=== PATIENT | female | born 1970 | race Caucasian/White ===

== ENCOUNTER 2017-09-02 07:17 | Emergency (ER) | payer OTHER ==
[~2017-09-02] VITALS: Ht 157.5 cm; Wt 62.1 kg
[2017-09-02] MEDS ORDERED: IV NORMAL SALINE 1,000ML 1,000 ML IV ONE (07:30)
--- NOTE | 2017-09-02 07:49 | PHYS DOC ---
Past History Past Medical History: Kidney Stones, UTI Past Surgical History: Cholecystectomy, Oophorectomy Alcohol Use: None Drug Use: None Adult General Chief Complaint Chief Complaint: Abdominal pain HPI HPI Patient is a 47 year old F who presents with constant dull lower abdominal pain with fluctuating intensity that started last night. Her pain does not radiate. She describes associated nausea without vomiting and loose stools over the past 2 days. She does have a history of diverticulitis and she feels that this is similar to her previous episodes. She does not feel that this is worse than previous episodes. She has been previously diagnosed with diverticulitis via CT scans. Review of Systems Review of Systems Constitutional: Denies fever or chills [] Eyes: Denies change in visual acuity, redness, or eye pain [] HENT: Denies nasal congestion or sore throat [] Respiratory: Denies cough or shortness of breath [] Cardiovascular: No additional information not addressed in HPI [] GI: Negative except history of present illness : Denies dysuria or hematuria [] Musculoskeletal: Denies back pain or joint pain [] Integument: Denies rash or skin lesions [] Neurologic: Denies headache, focal weakness or sensory changes [] Endocrine: Denies polyuria or polydipsia [] All other systems were reviewed and found to be within normal limits, except as documented in this note. Family History Family History No pertinent family medical history was reported Current Medications Current Medications Current medications reviewed Allergies Allergies Allergies Coded Allergies Type Severity Reaction Last Updated Verified Penicillins Allergy Intermediate 11/13/15 Yes Physical Exam Physical Exam Constitutional: Well developed, well nourished, minimal acute distress, non- toxic appearance. [] HENT: Normocephalic, atraumatic, Eyes: EOMI, conjunctiva normal, no discharge. [] Neck: Normal range of motion, no tenderness, supple, no stridor. [] Cardiovascular:Heart rate regular rhythm, Lungs & Thorax: Bilateral breath sounds clear to auscultation [] Abdomen: Bowel sounds normal, soft, no masses, no pulsatile masses. [] Mild to moderate bilateral lower abdominal tenderness to palpation. No guarding or rebound was noted. No tenderness noted and upper quadrants Skin: Warm, dry, no erythema, no rash. [] Extremities: No tenderness, no cyanosis, no clubbing, ROM intact, no edema. [] Neurologic: Alert and oriented X 3, normal motor function, normal sensory function, no focal deficits noted. [] Psychologic: Affect normal, judgement normal, mood normal. [] Current Patient Data Vital Signs Vital Signs Date Time Temp Pulse Resp B/P (MAP) Pulse Ox O2 Delivery O2 Flow Rate FiO2 09/02/17 08:33 74 20 107/42 (63) 97 Room Air 09/02/17 07:17 98.2 77 22 100 Room Air Lab Results Laboratory Tests Test 09/02/17 07:35 09/02/17 07:45 Urine Collection Type Unknown Urine Color Yellow Urine Clarity Hazy Urine pH 5.0 Urine Specific [place] 1.025 Urine Protein Neg (NEG-TRACE) Urine Glucose (UA) Neg mg/dL (NEG) Urine Ketones (Stick) Neg mg/dL (NEG) Urine Blood Mod (NEG) Urine Nitrite Neg (NEG) Urine Bilirubin Neg (NEG) Urine Urobilinogen Dipstick 0.2 mg/dL (0.2 mg/dL) Urine Leukocyte Esterase Neg (NEG) Urine RBC 3-5 /HPF (0-2) Urine WBC 0 /HPF (0-4) Urine Squamous Epithelial Cells Many /LPF Urine Bacteria 0 /HPF (0-FEW) Urine Hyaline Casts Occ /HPF Urine Mucus Slight /LPF White Blood Count 12.2 x10^3/uL (4.0-11.0) Red Blood Count 4.41 x10^6/uL (3.50-5.40) Hemoglobin 13.8 g/dL (12.0-15.5) Hematocrit 41.2 % (36.0-47.0) Mean Corpuscular Volume 94 fL (79-100) Mean Corpuscular Hemoglobin 31 pg (25-35) Mean Corpuscular Hemoglobin Concent 33 g/dL (31-37) Red Cell Distribution Width 13.4 % (11.5-14.5) Platelet Count 236 x10^3/uL (140-400) Neutrophils (%) (Auto) 77 % (31-73) Lymphocytes (%) (Auto) 14 % (24-48) Monocytes (%) (Auto) 7 % (0-9) Eosinophils (%) (Auto) 1 % (0-3) Basophils (%) (Auto) 1 % (0-3) Neutrophils # (Auto) 9.4 x10^3uL (1.8-7.7) Lymphocytes # (Auto) 1.7 x10^3/uL (1.0-4.8) Monocytes # (Auto) 0.9 x10^3/uL (0.0-1.1) Eosinophils # (Auto) 0.1 x10^3/uL (0.0-0.7) Basophils # (Auto) 0.1 x10^3/uL (0.0-0.2) Sodium Level 140 mmol/L (136-145) Potassium Level 3.6 mmol/L (3.5-5.1) Chloride Level 103 mmol/L (98-107) Carbon Dioxide Level 28 mmol/L (21-32) Anion Gap 9 (6-14) Blood Urea Nitrogen 12 mg/dL (7-20) Creatinine 0.7 mg/dL (0.6-1.0) Estimated GFR (Cockcroft-Gault) 90.5 BUN/Creatinine Ratio 17 (6-20) Glucose Level 90 mg/dL (70-99) Calcium Level 8.9 mg/dL (8.5-10.1) Total Bilirubin 0.2 mg/dL (0.2-1.0) Aspartate Amino Transf (AST/SGOT) 11 U/L (15-37) Alanine Aminotransferase (ALT/SGPT) 10 U/L (14-59) Alkaline Phosphatase 101 U/L (46-116) Total Protein 7.2 g/dL (6.4-8.2) Albumin 3.4 g/dL (3.4-5.0) Albumin/Globulin Ratio 0.9 (1.0-1.7) EKG EKG [] Radiology/Procedures Radiology/Procedures CT scan was declined. There is clearly explained that a CT scan would be the most specific and sensitive test to evaluate for diagnoses and the abdomen that would require surgery. He was also explained that these conditions may be life- threatening or permanently disabling if untreated. The patient declined the CT scan due to risk of radiation exposure and risk with IV contrast after verbalizing clear understanding without a CT scan a life-threatening or permanently disabling diagnosis may be ineffectively managed. Course & Med Decision Making Course & Med Decision Making Pertinent Labs and Imaging studies reviewed. (See chart for details) [] Dragon Disclaimer Dragon Disclaimer This electronic medical record was generated, in whole or in part, using a voice recognition dictation system. Departure Departure: Impression: Primary Impression: Diverticulitis Disposition: 01 HOME, SELF-CARE Condition: STABLE Referrals: BURTON GRESHAM MD (PCP) Patient Instructions: Diverticulitis Additional Instructions: Laura was seen in the emergency department for abdominal pain and diarrhea. No emergency medical condition was found on history or physical exam. Her symptoms and labs were most consistent with diverticulitis. She was started on oral antibiotics in the emergency room. She was given a prescription for antibiotics , nausea medication, and pain medication. She is encouraged to return to the emergency room if she develops new or worsening symptoms. She was also advised follow-up with her primary care doctor in the next 3-5 days for further management. Scripts Mesalamine (PENTASA) 500 Mg Capsule.er 1000 MG PO TID for 7 Days, #42 CAP.SR Prov: RINKU LAW MD 09/02/17 Ondansetron (ZOFRAN ODT) 4 Mg Tab.rapdis 1 TAB SL Q8HRS, #15 TAB Prov: RINKU LAW MD 09/02/17 Metronidazole (FLAGYL) 500 Mg Tablet 1 TAB PO BID for 10 Days, #20 TAB Prov: RINKU LAW MD 09/02/17 Ciprofloxacin Hcl (CIPRO) 500 Mg Tablet 1 TAB PO BID for 10 Days, #20 TAB Prov: RINKU LAW MD 09/02/17 RINKU LAW MD Sep 02, 2017 07:49
[2017-09-02 08:02] LABS: BASO # 0.1 x10^3/uL (0.0-0.2); BASO % 1 % (0-3); EOS # 0.1 x10^3/uL (0.0-0.7); EOS % 1 % (0-3); HEMATOCRIT 41.2 % (36.0-47.0); HEMOGLOBIN 13.8 g/dL (12.0-15.5); LYMPH # 1.7 x10^3/uL (1.0-4.8); LYMPH % 14 % (24-48); MEAN CORPUSCULAR HEMOGLOBIN 31 pg (25-35); MEAN CORPUSCULAR HGB CONC 33 g/dL (31-37); MEAN CORPUSCULAR VOLUME 94 fL (79-100); MONO # 0.9 x10^3/uL (0.0-1.1); MONO % 7 % (0-9); NEUT # 9.4 x10^3uL (1.8-7.7); NEUT % 77 % (31-73); PLATELET COUNT 236 x10^3/uL (140-400); RED BLOOD COUNT 4.41 x10^6/uL (3.50-5.40); RED CELL DISTRIBUTION WIDTH 13.4 % (11.5-14.5); WHITE BLOOD COUNT 12.2 x10^3/uL (4.0-11.0)
[2017-09-02] MEDS ORDERED: ONDANSETRON PF 4 MG/2 ML VIAL. IV ONE (08:15)
[2017-09-02] MEDS ORDERED: MESALAMINE 1.2 GM TABLET.DR PO ONE (08:15)
[2017-09-02 08:29] LABS: ALBUMIN 3.4 g/dL (3.4-5.0); ALBUMIN/GLOBULIN RATIO 0.9 (1.0-1.7); CALCIUM 8.9 mg/dL (8.5-10.1); CREATININE 0.7 mg/dL (0.6-1.0); GFR 90.5; POTASSIUM 3.6 mmol/L (3.5-5.1); TOTAL BILIRUBIN 0.2 mg/dL (0.2-1.0); TOTAL PROTEIN 7.2 g/dL (6.4-8.2)
[2017-09-02 08:48] LABS: BILIRUBIN,URINE NEG (NEG); CLARITY,URINE HAZY; COLOR,URINE YELLOW; GLUCOSE,URINE NEG (NEG)
[2017-09-02 08:49] LABS: BACTERIA,URINE 0 /HPF (0-FEW); HYALINE CASTS, URINE OCC /HPF; NITRITE,URINE NEG (NEG); SQUAMOUS EPITHELIAL CELL,UR MANY /LPF; UROBILINOGEN,URINE 0.2 mg/dL (0.2 mg/dL); WBC,URINE 0 /HPF (0-4)
[2017-09-02] MEDS ORDERED: METR500T PO (09:19)
[2017-09-02] MEDS ORDERED: MESA500C PO (09:19)
[2017-09-02] MEDS ORDERED: ONDA4TAB10 SL (09:19)
[2017-09-02] MEDS ORDERED: CIPR500T94 PO (09:19)
[2017-09-02] MEDS ORDERED: metroNIDAZOLE 500 MG TABLET PO ONE (09:30)
[2017-09-02] MEDS ORDERED: CIPROFLOXACIN HCL 500 MG TABLET PO ONE (09:30)
[2017-09-02 09:55] VITALS: BP 100/45
== END 2017-09-02 09:55 | disposition home or self-care (01) ==
LOC: ER 07:17
DX: K57.92 Diverticulitis of intestine, part unspecified, without perforation or abscess without bleeding (principal); Z87.442 Personal history of urinary calculi; Z87.440 Personal history of urinary (tract) infections; Z90.49 Acquired absence of other specified parts of digestive tract; Z90.721 Acquired absence of ovaries, unilateral; Z88.0 Allergy status to penicillin
CPT/HCPCS: 36415; 80053; 81001; 85025; 96361; 96374; 99284; J2405; J7030

== ENCOUNTER 2020-03-21 08:33 | Emergency (ER) | payer OTHER ==
[~2020-03-21] VITALS: Ht 157.5 cm; Wt 57.0 kg
[~2020-03-21 08:33] MED LIST: CIPR500T94 PO; MESA500C PO; METR500T PO; ONDA4TAB10 SL
[2020-03-21 08:37] VITALS: BP 120/77
--- NOTE | 2020-03-21 09:02 | PHYS DOC ---
Past History Past Medical History: Diverticulitis, Kidney Stones, UTI Past Surgical History: Cholecystectomy, Oophorectomy Smoking: Less than 1pk/day Alcohol Use: None Drug Use: None General Adult EDM: Chief Complaint: BACK PAIN OR INJURY HPI: HPI: Patient is a 49 year old F who presents with L sided back and rib pain that began about 2 weeks ago after a fall. She states that the pain has been getting progressively worse, and it now hurts to breath. Pain does not radiate anywhere. She states it is constant and rates it 7/10. She does have some improvement in t he pain with Tylenol and ibuprofen; breathing deeply, laying on her left side, and sneezing make the pain worse. She denies pain anywhere else from the fall and denies use of blood thinners. Review of Systems: Review of Systems: Constitutional: Denies fever or chills Eyes: Denies redness or eye pain HENT: Denies nasal congestion or sore throat Respiratory: Denies cough or shortness of breath Cardiovascular: Denies chest pain or palpitations GI: Denies abdominal pain, nausea, or vomiting : Denies dysuria or hematuria Musculoskeletal: Denies joint pain; reports back pain Integument: Denies rash or skin lesions Neurologic: Denies headache or sensory changes Complete systems were reviewed and found to be within normal limits, except as documented in this note. Allergies: Allergies: Allergies Coded Allergies Type Severity Reaction Last Updated Verified Penicillins Allergy Intermediate 11/13/15 Yes Physical Exam: PE: Constitutional: Well developed, well nourished, no acute distress HENT: Normocephalic, atraumatic Eyes: Conjunctiva normal, no discharge Neck: Normal range of motion, supple Lungs & Thorax: No respiratory distress, equal chest rise and fall Abdomen: Soft, no tenderness Skin: Warm, dry, no rash Back: Tender to palpation posterior L mid and lower ribs, no CVA tenderness Extremities: No tenderness, no edema Neurologic: Alert and oriented X 3, no focal deficits noted Psychologic: Affect normal, judgment normal EKG: EKG: [] Radiology/Procedures: Radiology/Procedures: PROCEDURE: RIBS LEFT AND PA CHEST RIBS LEFT AND PA CHEST History: Reason: left chest wall pain s/p blunt trauma / Spl. Instructions: / History: Technique: PA view the chest and 3 additional views of the left ribs. Comparison: None. Findings: No consultation or pleural effusion. Normal heart size. No pneumothorax. Surgical clips right upper quadrant. No displaced rib fractures. No displaced rib fractures. Impression: 1. No acute cardiopulmonary process. No displaced rib fractures. Electronically signed by: Huber Benedict DO (03/21/2020 9:09 AM) [id number] Course & Med Decision Making: Course & Med Decision Making Pt is a 49 yo F who presented with left back/rib pain s/p blunt injury from a fall 2 weeks ago. Pt denied difficulty breathing, but reported pain while breathing. CXR was negative for any displaced rib fracture, pneumothorax, or lung consolidation. Pt given prescription for hydrocdone upon discharge. Pt given incentive spirometer and taught how to use it appropriately. Pt stable upon discharge. Pertinent Labs and Imaging studies reviewed. (See chart for details) Dragon Disclaimer: Dragadriel Disclaimer: This electronic medical record was generated, in whole or in part, using a voice recognition dictation system. Departure Departure: Impression: Primary Impression: Contusion of left chest wall Qualified Codes: S20.212A - Contusion of left front wall of thorax, initial encounter Disposition: HOME/RESIDENCE PRIOR TO ADM Condition: STABLE Referrals: ELIUD GRIGGS MD (PCP) Patient Instructions: Chest Contusion, [id number], Incentive Spirometer Scripts Hydrocodone Bit/Acetaminophen (NORCO 5-325 TABLET) 1 Each Tablet 0.5-1 TAB PO Q6HRS PRN for PAIN, #10 TAB Prov: IRMA MCGOWAN DO 03/21/20 IRMA MCGOWAN DO Mar 21, 2020 09:02
--- NOTE | 2020-03-21 09:13 | RAD ---
RIBS LEFT AND PA CHEST History: Reason: left chest wall pain s/p blunt trauma / Spl. Instructions: / History: Technique: PA view the chest and 3 additional views of the left ribs. Comparison: None. Findings: No consultation or pleural effusion. Normal heart size. No pneumothorax. Surgical clips right upper quadrant. No displaced rib fractures. No displaced rib fractures. Impression: 1. No acute cardiopulmonary process. No displaced rib fractures. Electronically signed by: Huber Benedict DO (03/21/2020 9:09 AM) [id number]
[2020-03-21] MEDS ORDERED: HYDR-3165 PO (09:22)
== END 2020-03-21 09:26 | disposition home or self-care (01) ==
LOC: ER 08:33
DX: S20.212A Contusion of left front wall of thorax, initial encounter (principal); M54.89 Other dorsalgia; F17.200 Nicotine dependence, unspecified, uncomplicated; Z87.442 Personal history of urinary calculi; Z87.440 Personal history of urinary (tract) infections; Z88.0 Allergy status to penicillin; W18.39XA Other fall on same level, initial encounter; Y93.89 Activity, other specified; Y92.89 Other specified places as the place of occurrence of the external cause; Y99.8 Other external cause status
CPT/HCPCS: 71101; 99283